=== PATIENT | female | born 1995 | race Caucasian/White ===

== ENCOUNTER 2017-04-01 21:29 | Emergency (ER) | payer BC ==
[~2017-04-01] VITALS: Ht 160 cm; Wt 54.4 kg
[2017-04-01] MEDS ORDERED: BENADRYL25 MG ORAL (21:42)
[2017-04-01] MEDS ORDERED: PREDNISONE20 MG ORAL (21:42)
[2017-04-01] MEDS ORDERED: EPIPEN 2-P0.3 MG/0.3 IM (21:42)
--- NOTE | 2017-04-01 21:42 | Emergency Room Report ---
History of Present Illness General Chief Complaint: Allergic Reaction Source: Patient, EMS Present Illness HPI This is a 21-year-old female with severe peanut allergy. She had to use an EpiPen 3 times in the past. She presents with chief complaint of allergic reaction. She was at a [employer] restaurant and suffers severe reaction after eating. She did tell the staff that she has severe allergy to peanuts. She had hard time breathing and was itching with a rash. EMS gave her 0.5 mg of epinephrine, Benadryl and albuterol treatment. She is back to baseline and feeling better now. No fever chills. Had one episode vomiting. Allergies: Coded Allergies: PEANUT (Verified Allergy, Unknown, 04/01/17) Patient History Past Medical History: see triage record, old chart reviewed Past Surgical History: other Pertinent Family History: none Social History: Denies: smoking Last Menstrual Period: "20 days ago" Now: No Immunizations: other Reviewed Nursing Documentation: PMH: Agreed, PSxH: Agreed Nursing Documentation-PMH Hx Asthma: Yes Review of Systems Eye: Denies: eye pain, blurred vision ENT: Denies: ear pain, nose congestion, throat swelling Respiratory: Reports: shortness of breath, Denies: cough Cardiovascular: Denies: chest pain, palpitations Gastrointestinal: Denies: abdominal pain, diarrhea, nausea, vomiting Musculoskeletal: Denies: back pain, joint pain Skin: Denies: rash Neurological: Denies: headache, numbness Endocrine: Denies: increased thirst, increased urine Hematologic/Lymphatic: Denies: easy bruising All Other Systems: negative except mentioned in HPI Physical Exam Vital Signs Date Time Temp Pulse Resp B/P (MAP) Pulse Ox O2 Delivery O2 Flow Rate FiO2 04/01/17 21:25 125 18 105/57 100 Room Air vitals with tachycardia Sp02 EP Interpretation: reviewed, normal General Appearance: well appearing, no apparent distress, alert Head: normocephalic, atraumatic Eyes: bilateral eye PERRL, bilateral eye EOMI ENT: hearing grossly normal, normal pharynx Neck: full range of motion, supple, no meningismus Respiratory: chest non-tender, lungs clear, normal breath sounds Cardiovascular #1: regular rate, rhythm, no murmur Gastrointestinal: normal bowel sounds, non tender, no mass, no organomegaly, no bruit, non-distended Musculoskeletal: back normal, gait/station normal, normal range of motion Psychiatric: mood/affect normal Skin: warm/dry Medical Decision Making Diagnostic Impression: Primary Impression: Acute anaphylaxis Qualified Codes: T78.2XXA - Anaphylactic shock, unspecified, initial encounter ER Course Patient was anaphylaxis and severe reaction to peanut. She is better now. We' ll observe her to make sure there is no rebound effect. We'll discharge home with prescription for EpiPen. Last Vital Signs Date Time Temp Pulse Resp B/P (MAP) Pulse Ox O2 Delivery O2 Flow Rate FiO2 04/01/17 21:25 125 18 105/57 100 Room Air Status: improved Disposition: HOME, SELF-CARE Condition: Stable Scripts Prednisone* (PREDNISONE*) 20 Mg Tablet 60 MG ORAL DAILY, #9 TAB Prov: JOHN JOINER M.D. 04/01/17 Diphenhydramine Hcl* (BENADRYL*) 25 Mg Capsule 50 MG ORAL Q6H Y for Itching, #30 CAP Prov: JONH JOINER M.D. 04/01/17 Epinephrine (Epipen 2-Alpesh) 0.3 Mg/0.3 Ml Auto.injct 0.3 MG IM PRN, #1 EA Prov: JOHN JOINER M.D. 04/01/17 Patient Instructions: Food Allergy Additional Instructions: Followup with your DrDalila in 7 days as needed. Return if symptom worsen. JOHN JOINER M.D. Apr 01, 2017 21:42
[2017-04-01] MEDS ORDERED: Solu-MEDROL 125mg Inj IVP ONE (21:45)
[2017-04-01 22:58] VITALS: BP 105/57
== END 2017-04-01 22:59 | disposition home or self-care (01) ==
LOC: EDBD 21:29 → EMR 22:05
DX: T78.2XXA Anaphylactic shock, unspecified, initial encounter (principal); J45.909 Unspecified asthma, uncomplicated; Z91.010 Allergy to peanuts
CPT/HCPCS: 96374; 99284; J2930